=== PATIENT | female | born 1945 | race Caucasian/White ===

== ENCOUNTER 2025-05-17 16:30 | Emergency (ER) | payer MEDICARE ==
[~2025-05-17] VITALS: Ht 157.5 cm; Wt 48.5 kg
[~2025-05-17 16:30] MED LIST: BACTRIM DS TAB1 EACH PO
[2025-05-17 17:30] VITALS: TEMP 98.4
[2025-05-17 18:43] LABS: BASOPHILS % 0.2 % (0.0-1.0); EOSINOPHILS % 0.8 % (0.0-6.0); LYMPHOCYTES % 18.3 % (18.0-39.1); MONOCYTES % 13.8 % (4.4-11.3); NEUTROPHILS % 65.7 % (38.7-80.0); RED CELL DISTRIBUTION WIDTH 18.4 % (11.7-14.4)
[2025-05-17 19:03] LABS: EST GLOMERULAR FILTRATION RATE 63.0 ML/MIN (>=60)
[2025-05-17] MEDS: KETOROLAC TROMETHAMINE 30 MG/ML VIAL IV STA (19:13)
[2025-05-17] MEDS ORDERED: IOPAMIDOL 370 MG/ML 100 ML INFUS..BTL INJ ONE (19:14)
[2025-05-17] MEDS: HYDROXYZINE HCL 25 MG TAB PO SCH (21:27)
[2025-05-17 22:00] VITALS: PULSE 68; RESP 18
[2025-05-17 23:33] VITALS: BP 138/78; PULSE 119; RESP 20; O2SAT 100
== END 2025-05-17 23:58 | disposition home or self-care (01) ==
LOC: ER 18:10
DX: M25.562 Pain in left knee (principal); M06.9 Rheumatoid arthritis, unspecified; G62.9 Polyneuropathy, unspecified; H54.8 Legal blindness, as defined in USA; G25.81 Restless legs syndrome; Z87.19 Personal history of other diseases of the digestive system
CPT/HCPCS: 36415; 73701; 80048; 85025; 99284; J1885; J3410; Q9967